=== PATIENT | female | born 1995 | race Caucasian/White ===

== ENCOUNTER 2018-10-03 04:59 | Inpatient (IN) | payer MEDICAID ==
[~2018-10-03] VITALS: Ht 170.2 cm; Wt 126.8 kg
[~2018-10-03 04:59] MED LIST: IBUP-1222 PO; OXYC-302 PO
[2018-10-03] MEDS ORDERED: OXYTOCIN 30U/ 0.9% NaCL 500ML 500 ML IV PRN (05:02)
[2018-10-03] MEDS ORDERED: OXYTOCIN 30U/ 0.9% NaCL 500ML 500 ML IV ONE (05:02)
[2018-10-03] MEDS ORDERED: NEWBORN KIT ONE (05:13)
[2018-10-03] MEDS ORDERED: LIDOCAINE 1%, 20ML ONE (05:13)
[2018-10-03] MEDS ORDERED: MISOPROSTOL 200 MCG TABLET ONE (05:14)
[2018-10-03] MEDS ORDERED: OXYTOCIN 30U/ 0.9% NaCL 500ML 500 ML ONE (05:14)
[2018-10-03 05:24] LABS: BASOPHILS # (AUTO) 0.03 x10^3/uL (0-0.1); BASOPHILS % (AUTO) 0 % (0-1); EOSINOPHILS # (AUTO) 0.07 x10^3/uL (0-0.4); EOSINOPHILS % (AUTO) 1 % (1-7); LYMPHOCYTES # (AUTO) 2.47 x10^3/uL (1-3.4); LYMPHOCYTES % (AUTO) 32 % (22-44); MD NO; MEAN CORPUSCULAR HEMOGLOBIN 26.3 pg (27.0-34.8); MEAN CORPUSCULAR HGB CONC 32.7 g/dL (32.4-35.8); MEAN CORPUSCULAR VOLUME 80.6 fL (80-100); MEAN PLATELET VOLUME 7.9 fL (7.4-10.4); MONOCYTES # (AUTO) 0.45 x10^3/uL (0.2-0.8); MONOCYTES % (AUTO) 6 % (2-9); NEUTROPHILS # (AUTO) 4.82 x10^3/uL (1.8-6.8); NEUTROPHILS % (AUTO) 62 % (42-75); PLATELET COUNT 298 x10^3/uL (130-400); RED BLOOD COUNT 4.42 x10^6/uL (3.82-5.3); RED CELL DISTRIBUTION WIDTH 15.9 % (9.6-15.2)
[2018-10-03] MEDS ORDERED: CALCIUM CARBONATE 500 MG TAB.CHEW PO PRN ×2 (05:30→17:30)
[2018-10-03] MEDS ORDERED: ONDANSETRON 2MG/ML, 2ML IVPush PRN (05:30)
[2018-10-03] MEDS ORDERED: TERBUTALINE 1 MG/ML, 1ML IVPush PRN (05:30)
[2018-10-03] MEDS ORDERED: FENTANYL PF 100 MCG/2ML IV PRN (05:30)
[2018-10-03] MEDS: LACTATED RINGERS 1,000 ML IV SCH ×2 (05:39→11:56)
[2018-10-03 06:19] VITALS: BP 129/88
[2018-10-03] MEDS ORDERED: FENTANYL/BUPIV./NS/PF 250 ML EPIDCONT SCH (07:03)
[2018-10-03] MEDS ORDERED: FENTANYL PF 500 MCG, BUPIVACAINE/PF 0.5%, 30ML 62.5 ML in SODIUM CHLORIDE 0.9% 177.5 ML EPIDCONT SCH (08:00)
[2018-10-03] MEDS ORDERED: FENTANYL PF 100 MCG/2ML ONE ×4 (12:10→16:05)
[2018-10-03] MEDS: FENTANYL PF 100 MCG/2ML IVPush PRN ×4 (12:11→16:07)
[2018-10-03] MEDS: OXYTOCIN 30U/ 0.9% NaCL 500ML 500 ML IV SCH (17:30)
[2018-10-03] MEDS ORDERED: RHOGAM FROM BLOOD BANK 1 NOTE EA IM/IV ONE (17:30)
[2018-10-03] MEDS ORDERED: MEASLES,MUMPS&RUBELLA VACC/PF 0.5 ML SQ PRN (17:30)
[2018-10-03] MEDS ORDERED: MISOPROSTOL 200 MCG TABLET PR PRN (17:30)
[2018-10-03] MEDS ORDERED: DIPH,PERTUSS(ACELL),TET VAC/PF NC IM-VACC PRN (17:30)
[2018-10-03] MEDS ORDERED: MAGNESIUM HYDROXIDE 8%, 30ML UDC PO PRN (17:30)
[2018-10-03] MEDS ORDERED: OXYcodone IR 5MG TABLET PO PRN (17:30)
[2018-10-03] MEDS ORDERED: ONDANSETRON 2MG/ML, 2ML IV PRN (17:30)
[2018-10-03] MEDS ORDERED: OXYcodone IR 5MG TABLET ONE (17:45)
[2018-10-03 19:45] VITALS: BP 119/73
[2018-10-03 20:25] VITALS: BP 125/85
[2018-10-03] MEDS: DOCUSATE 100 MG CAPSULE PO PRN (23:00)
[2018-10-03] MEDS: OXYcodone/APAP 5/325MG TABLET PO PRN (23:00)
[2018-10-04 00:45] VITALS: BP 101/70
[2018-10-04 01:20] LABS: BASOPHILS # (AUTO) 0.04 x10^3/uL (0-0.1); BASOPHILS % (AUTO) 0 % (0-1); EOSINOPHILS # (AUTO) 0.15 x10^3/uL (0-0.4); EOSINOPHILS % (AUTO) 1 % (1-7); LYMPHOCYTES # (AUTO) 2.46 x10^3/uL (1-3.4); LYMPHOCYTES % (AUTO) 20 % (22-44); MD NO; MEAN CORPUSCULAR HEMOGLOBIN 27.2 pg (27.0-34.8); MEAN CORPUSCULAR HGB CONC 33.5 g/dL (32.4-35.8); MEAN CORPUSCULAR VOLUME 81.3 fL (80-100); MEAN PLATELET VOLUME 7.7 fL (7.4-10.4); MONOCYTES # (AUTO) 0.74 x10^3/uL (0.2-0.8); MONOCYTES % (AUTO) 6 % (2-9); NEUTROPHILS # (AUTO) 8.93 x10^3/uL (1.8-6.8); NEUTROPHILS % (AUTO) 73 % (42-75); PLATELET COUNT 262 x10^3/uL (130-400); RED BLOOD COUNT 3.69 x10^6/uL (3.82-5.3); RED CELL DISTRIBUTION WIDTH 16.1 % (9.6-15.2)
[2018-10-04] MEDS: OXYTOCIN 30U/ 0.9% NaCL 500ML 500 ML IV SCH ×3 (03:30→23:30)
[2018-10-04 03:45] VITALS: BP 122/80
[2018-10-04] MEDS: DOCUSATE 100 MG CAPSULE PO PRN ×2 (08:12→20:30)
[2018-10-04] MEDS: PRENATAL VIT/IRON/FA 1 EACH TABLET PO SCH (08:12)
[2018-10-04] MEDS: IBUPROFEN 600 MG TABLET PO PRN (08:12)
[2018-10-04] MEDS: OXYcodone/APAP 5/325MG TABLET PO PRN (08:12)
[2018-10-04 08:20] VITALS: BP 104/71
[2018-10-04 12:18] VITALS: BP 112/75
[2018-10-04 16:03] VITALS: BP 110/72
[2018-10-04 19:59] VITALS: BP 114/79
[2018-10-05 07:55] VITALS: BP 122/86
[2018-10-05] MEDS: PRENATAL VIT/IRON/FA 1 EACH TABLET PO SCH (08:53)
[2018-10-05] MEDS: IBUPROFEN 600 MG TABLET PO PRN (08:53)
[2018-10-05] MEDS: DOCUSATE 100 MG CAPSULE PO PRN (08:53)
[2018-10-05] MEDS: OXYTOCIN 30U/ 0.9% NaCL 500ML 500 ML IV SCH (09:30)
== END 2018-10-05 12:50 | disposition home or self-care (01) | DRG 806 ==
LOC: LDIP 04:59 → 2NW 19:29
PROVIDERS: ADMIT Obstetrics & Gynecology Gynecology; ATTEND Obstetrics & Gynecology Gynecology
PROC: 10E0XZZ Delivery of Products of Conception, External Approach (ICD-10-PCS; principal; 2018-10-03)
PROC: 3E033VJ Introduction of Other Hormone into Peripheral Vein, Percutaneous Approach (ICD-10-PCS; 2018-10-03)
DX: O69.81X0 Labor and delivery complicated by cord around neck, without compression, not applicable or unspecified (principal); O99.354 Diseases of the nervous system complicating childbirth; Z37.0 Single live birth; G43.909 Migraine, unspecified, not intractable, without status migrainosus; G40.909 Epilepsy, unspecified, not intractable, without status epilepticus; Z3A.39 39 weeks gestation of pregnancy; Z82.49 Family history of ischemic heart disease and other diseases of the circulatory system
CPT/HCPCS: 36415; 82803; 85025; 86850; 86900; G0378; J3010; J2590; J7120